=== PATIENT | female | born 1930 | race Caucasian/White ===

== ENCOUNTER 2016-08-23 14:30 | Outpatient (RCR) | payer MEDICARE, BC ==
[2016-03-29 06:33] VITALS: BP 130/57
[~2016-08-23 14:30] MED LIST: ASPIRIN 32325 MG/TAB PO; BISACODYL RC; CALCIUM WITH V1 EAC1 PO; DAILY VITAMIN1 EAC3 PO; DITROPAN XL 5MG5 MG PO; FERROUS SU325 MG/TAB PO; LEVOTHYROXIN0.075 MG PO; NORCO 325 MG-51 TAB PO; OXYBUTYNIN5 MG PO; PANTOPRAZOLE SO20 MG PO; PEG 335017 GM/Dose PO; SEPTRA 400 MG-1 TAB PO; TYLENOL 500MG500 MG PO
== END 2016-09-27 12:28 | disposition home or self-care (01) ==
LOC: PT 14:30
DX: Z47.1 Aftercare following joint replacement surgery (principal); Z96.641 Presence of right artificial hip joint; M16.0 Bilateral primary osteoarthritis of hip

== ENCOUNTER 2017-02-08 15:00 | Outpatient (RCR) | payer MEDICARE, BC ==
[2016-03-29 06:33] VITALS: BP 130/57
== END 2017-03-05 11:27 | disposition home or self-care (01) ==
LOC: PT 15:00
DX: Z47.89 Encounter for other orthopedic aftercare (principal)

== ENCOUNTER → 2017-02-19 | Outpatient (CLI) | payer MEDICARE, BC ==
[2016-03-29 06:33] VITALS: BP 130/57
[~2017-02-19] MED LIST changes: +CLOPIDOGREL PO; +LASIX20 M1 PO
== END ==
LOC: RAD 15:26
DX: M79.662 Pain in left lower leg (principal); M79.661 Pain in right lower leg

== ENCOUNTER 2017-03-08 10:56 | Emergency (ER) | payer MEDICARE, BC ==
[~2017-03-08] VITALS: Ht 160 cm; Wt 43.9 kg
[~2017-03-08 10:56] MED LIST changes: -CLOPIDOGREL PO; -LASIX20 M1 PO
[2017-03-08] MEDS ORDERED: LASIX20 M1 PO (11:03)
[2017-03-08] MEDS ORDERED: CLOPIDOGREL PO (11:30)
[2017-03-08 14:58] VITALS: BP 115/50
== END 2017-03-08 14:50 | disposition short-term general hospital (02) ==
LOC: ED 10:56
DX: E86.0 Dehydration (principal); I50.9 Heart failure, unspecified; M25.551 Pain in right hip; R29.6 Repeated falls; I10 Essential (primary) hypertension; F17.210 Nicotine dependence, cigarettes, uncomplicated; K21.9 Gastro-esophageal reflux disease without esophagitis; M19.91 Primary osteoarthritis, unspecified site; E03.9 Hypothyroidism, unspecified; I73.9 Peripheral vascular disease, unspecified; Z79.82 Long term (current) use of aspirin
CPT/HCPCS: A4353; J7120